=== PATIENT | male | born 1945 | race Caucasian/White ===

== ENCOUNTER 2020-01-28 10:32 | Inpatient (IN) | payer OTHER ==
[~2020-01-28] VITALS: Ht 177.8 cm; Wt 103.6 kg
[2020-01-28 10:50] VITALS: BP 110/50
[2020-01-28 12:02] LABS: BASO # 0.1 10*3/uL (0.0-0.1); BASO % 0.8 % (0.0-1.0); EOS # 0.7 10*3/uL (0.0-0.4); EOS % 7.2 % (1.0-4.0); HEMATOCRIT 52.2 % (42.0-52.0); MEAN CELL VOLUME 95.6 fl (80.0-94.0); MEAN CORPUSCULAR HGB 32.6 pg (27.0-31.0); MEAN CORPUSCULAR HGB CONC 34.1 g/dl (33.0-37.0); MEAN PLATELET VOLUME 9.9 fl (9.6-12.3); MONO # 1.3 10*3/uL (0.1-1.0); MONO % 13.1 % (3.0-9.0); NEUT # 5.5 10*3/uL (2.3-7.9); NEUT % 57.6 % (47.0-73.0); PLATELET COUNT AUTOMATED 215 10*3/uL (130-400); RED BLOOD COUNT 5.46 10*6/uL (4.50-5.90); RED CELL DISTRI WIDTH 13.6 % (0-14.5); WHITE BLOOD COUNT 9.5 10*3/uL (4.8-10.8)
[2020-01-28 12:15] LABS: ACT PARTIAL THROMBO TIME 28.5 SECONDS (20.0-32.1)
[2020-01-28 12:18] LABS: ALBUMIN 3.5 gm/dl (3.1-4.5); ALKALINE PHOSPHATASE 113 U/L (45-117); BUN 37 mg/dl (7-24); CHLORIDE 106 mmol/L (98-107); CREATININE 1.22 mg/dL (0.70-1.30); POTASSIUM 4.2 mmol/L (3.5-5.1); SGOT/AST 16 IU/L (3-35); SGPT/ALT 27 U/L (12-78); SODIUM 137 mmol/L (136-145); TOTAL PROTEIN 7.5 gm/dL (6.4-8.2)
[2020-01-28 14:07] VITALS: BP 118/67
[2020-01-28] MEDS ORDERED: FISH OIL 1,0001 EAC6 PO (14:35)
[2020-01-28] MEDS ORDERED: METFORMIN HYD1000 MG PO (14:35)
[2020-01-28] MEDS ORDERED: JARDIANCE25 MG PO (14:35)
[2020-01-28] MEDS ORDERED: LIPITOR20 MG PO (14:36)
[2020-01-28] MEDS ORDERED: VIBRA-TAB100 MG PO (14:37)
[2020-01-28] MEDS ORDERED: ZYRTEC10 M3 PO (14:37)
[2020-01-28] MEDS ORDERED: PREGABALIN100 MG PO (14:37)
[2020-01-28] MEDS ORDERED: VITAMIN D325 MC1 PO (14:38)
[2020-01-28] MEDS ORDERED: HUMIRA40 MG/0.8 SQ (14:39)
[2020-01-28] MEDS ORDERED: LISINOPRIL20 MG PO (14:39)
[2020-01-28] MEDS ORDERED: TAMSULOSIN HCL0.4 MG PO (14:40)
[2020-01-28] MEDS ORDERED: ALOGLIPTIN25 MG PO (14:40)
[2020-01-28] MEDS ORDERED: VIAGRA25 MG PO (14:41)
[2020-01-28] MEDS ORDERED: LIPITOR40 MG PO (15:59)
[2020-01-28] MEDS ORDERED: TOPROL XL50 M1 PO (17:39)
[2020-01-28 20:00] VITALS: BP 145/80
[2020-01-28] MEDS ORDERED: ASPIRIN CHILDRE81 MG PO (20:44)
[2020-01-29] VITALS (9 sets, daily range): BP systolic 112–139; BP diastolic 54–83
[2020-01-29 05:13] LABS: ALBUMIN 3.3 gm/dl (3.1-4.5); BUN 32 mg/dl (7-24); CHLORIDE 105 mmol/L (98-107); CHOLESTEROL 105 mg/dL (<200); CREATININE 1.14 mg/dL (0.70-1.30); SGOT/AST 13 IU/L (3-35); SGPT/ALT 24 U/L (12-78); SODIUM 138 mmol/L (136-145); TRIGLYCERIDES 178 mg/dl (<150); VLDL CHOLESTEROL 36 mg/dL (6-40)
[2020-01-29 05:21] LABS: ALKALINE PHOSPHATASE 82 U/L (45-117); FREE T4 1.07 ng/dl (0.76-1.46); HDL CHOLESTEROL 40 mg/dl (40-60); LDL CHOLESTEROL 29 mg/dL (9-159); TOTAL PROTEIN 6.9 gm/dL (6.4-8.2)
[2020-01-29 06:17] LABS: BASO # 0.1 10*3/uL (0.0-0.1); BASO % 0.6 % (0.0-1.0); EOS # 0.7 10*3/uL (0.0-0.4); EOS % 6.8 % (1.0-4.0); LYMPH # 2.4 10*3/uL (1.3-4.4); LYMPH % 24.7 % (27.0-41.0); MEAN CORPUSCULAR HGB 32.2 pg (27.0-31.0); MEAN CORPUSCULAR HGB CONC 33.5 g/dl (33.0-37.0); MEAN PLATELET VOLUME 10.1 fl (9.6-12.3); MONO # 1.3 10*3/uL (0.1-1.0); MONO % 13.4 % (3.0-9.0); NEUT # 5.2 10*3/uL (2.3-7.9); PLATELET COUNT AUTOMATED 213 10*3/uL (130-400); RED BLOOD COUNT 5.31 10*6/uL (4.50-5.90); RED CELL DISTRI WIDTH 13.5 % (0-14.5); WHITE BLOOD COUNT 9.6 10*3/uL (4.8-10.8)
[2020-01-29 06:58] LABS: VITAMIN D, 25-HYDROXY 64.9 ng/mL (30-100)
[2020-01-29 07:03] LABS: ACT PARTIAL THROMBO TIME 29.6 SECONDS (20.0-32.1)
[2020-01-29] MEDS ORDERED: DOXYCYCLINE100 MG PO (16:16)
[2020-01-29] MEDS ORDERED: TRAMADOL HCL50 MG PO (16:16)
[2020-01-30] VITALS: BP 118/53
[2020-01-30 06:30] LABS: MEAN CELL VOLUME 96.2 fl (80.0-94.0); MEAN CORPUSCULAR HGB 32.5 pg (27.0-31.0); MEAN CORPUSCULAR HGB CONC 33.8 g/dl (33.0-37.0); MEAN PLATELET VOLUME 9.9 fl (9.6-12.3); PLATELET COUNT AUTOMATED 191 10*3/uL (130-400); RED CELL DISTRI WIDTH 13.5 % (0-14.5); WHITE BLOOD COUNT 9.8 10*3/uL (4.8-10.8)
[2020-01-30 06:55] LABS: BUN 22 mg/dl (7-24); CHLORIDE 108 mmol/L (98-107); CREATININE 1.09 mg/dL (0.70-1.30); POTASSIUM 4.1 mmol/L (3.5-5.1); SODIUM 139 mmol/L (136-145)
[2020-01-30 07:25] LABS: BASOPHILS 2 % (0-1); PLATELET SUFFICIENCY NORMAL (NORMAL); TOTAL CELLS COUNTED 100 #CELLS
[2020-01-30 08:00] VITALS: BP 136/68
[2020-01-30 10:09] LABS: ACID FAST SPEC PROCESSING Tissue Grinding (.)
[2020-01-30 12:00] VITALS: BP 134/65
[2020-01-30 13:08] LABS: ACID FAST SPEC PROCESSING Concentration (.)
[2020-01-30 16:00] VITALS: BP 110/55
[2020-01-30] MEDS ORDERED: PHARMASSURE V500 MCG PO (16:08)
== END 2020-01-30 16:43 | disposition home or self-care (01) | DRG 579 ==
LOC: ED 10:32 → EDHOLD 13:02 → 4E 13:02
PROVIDERS: Emergency Medicine; Internal Medicine; Podiatrist; ADMIT Internal Medicine
PROC: 0J9Q0ZZ Drainage of Right Foot Subcutaneous Tissue and Fascia, Open Approach (ICD-10-PCS; principal; 2020-01-29)
DX: L03.115 Cellulitis of right lower limb (principal); I21.9 Acute myocardial infarction, unspecified; E87.2 Acidosis; L02.415 Cutaneous abscess of right lower limb; S90.01XA Contusion of right ankle, initial encounter; F17.210 Nicotine dependence, cigarettes, uncomplicated; E11.65 Type 2 diabetes mellitus with hyperglycemia; I10 Essential (primary) hypertension; E11.49 Type 2 diabetes mellitus with other diabetic neurological complication; E78.00 Pure hypercholesterolemia, unspecified; E53.8 Deficiency of other specified B group vitamins; E78.1 Pure hyperglyceridemia; R00.1 Bradycardia, unspecified; R71.8 Other abnormality of red blood cells; R79.82 Elevated C-reactive protein (CRP); W19.XXXA Unspecified fall, initial encounter; Y93.89 Activity, other specified; Y92.89 Other specified places as the place of occurrence of the external cause; Y99.8 Other external cause status; Z71.6 Tobacco abuse counseling; I25.2 Old myocardial infarction; Z95.5 Presence of coronary angioplasty implant and graft; Z80.1 Family history of malignant neoplasm of trachea, bronchus and lung; Z79.82 Long term (current) use of aspirin; Z79.899 Other long term (current) drug therapy; Z79.84 Long term (current) use of oral hypoglycemic drugs; R79.9 Abnormal finding of blood chemistry, unspecified; D72.810 Lymphocytopenia; D72.1 Eosinophilia

== ENCOUNTER 2020-02-20 00:35 | Emergency (ER) | payer OTHER ==
[~2020-02-20 00:35] MED LIST: ALOGLIPTIN25 MG PO; ASPIRIN CHILDRE81 MG PO; DOXYCYCLINE100 MG PO; FISH OIL 1,0001 EAC6 PO; HUMIRA40 MG/0.8 SQ; JARDIANCE25 MG PO; LIPITOR20 MG PO; LIPITOR40 MG PO; LISINOPRIL20 MG PO; METFORMIN HYD1000 MG PO; PHARMASSURE V500 MCG PO; PREGABALIN100 MG PO; TAMSULOSIN HCL0.4 MG PO; TOPROL XL50 M1 PO; TRAMADOL HCL50 MG PO; VIAGRA25 MG PO; VIBRA-TAB100 MG PO; VITAMIN D325 MC1 PO; ZYRTEC10 M3 PO
== END 2020-02-20 01:41 | disposition home or self-care (01) ==
LOC: ED 00:35
DX: Z48.01 Encounter for change or removal of surgical wound dressing (principal); E11.9 Type 2 diabetes mellitus without complications; F17.200 Nicotine dependence, unspecified, uncomplicated; Z79.899 Other long term (current) drug therapy; Z79.82 Long term (current) use of aspirin